=== PATIENT | female | born 1940 | race Asian ===

== ENCOUNTER → 2019-06-25 | Outpatient (CLI) | payer MEDICARE, OTHER ==
[~2019-06-25] MED LIST: ACET-2744 PO; ALBU8HFA IH; ASPI-728 PO; IBAN150T16 PO; LETR2.5 PO; NIFE-64 PO; OSCD250 PO; ROSU10TA22 PO
== END | disposition home or self-care (01) ==
LOC: RADMN 08:57
PROVIDERS: ATTEND Internal Medicine Interventional Cardiology
DX: M48.061 Spinal stenosis, lumbar region without neurogenic claudication (principal); M41.86 Other forms of scoliosis, lumbar region; M48.07 Spinal stenosis, lumbosacral region; M43.19 Spondylolisthesis, multiple sites in spine
CPT/HCPCS: 72131